=== PATIENT | female | born 1940 | race Caucasian/White ===

== ENCOUNTER 2018-07-13 17:28 | Inpatient (IN) | payer MEDICARE, MEDICAID ==
[~2018-07-13] VITALS: Ht 152.4 cm; Wt 64.0 kg
[~2018-07-13 17:28] MED LIST: ASPI-605 PO; CAPT25TA3 PO; FOLI1TAB16 PO; LEVO75TA7 PO
--- NOTE | 2018-07-13 18:03 | NUR ---
feeling dizzy since waking up this morning. denies nausea, vomiting. PER FAMILY, SHE FELL AND HIT HER HEAD. DENIES PAIN. NO NEURO DEFICITS. PT IS AOX3, AMB, VSS, RR EVEN AND UNLABORED ON RA. POLISH-SPEAKING. SKIN INTACT, NO ACUTE DISTRESS NOTED. HOOKED TO MONITOR AND MADE COMFORTABLE. FAMILY AT BEDSIDE. READY FOR EVAL.
[2018-07-13 18:58] LABS: BASOPHILS # (AUTO) 0.1 /CMM (0.0-0.2); BASOPHILS % (AUTO) 1.9 % (0.0-2.0); EOSINOPHILS % (AUTO) 5.2 % (0.0-6.0); HEMATOCRIT 38 % (33-45); HEMOGLOBIN 12.5 g/dL (11.5-14.8); LYMPHOCYTES # (AUTO) 1.8 /CMM (0.8-4.8); LYMPHOCYTES % (AUTO) 26.4 % (20.0-44.0); MEAN CORPUSCULAR HGB CONC 33 g/dl (31.0-36.0); MEAN CORPUSCULAR VOLUME 92 fL (82-100); MONOCYTES # (AUTO) 0.6 /CMM (0.1-1.30); NEUTROPHILS % (AUTO) 57.5 % (43.0-81.0); PLATELET COUNT (AUTO) 218 /CMM (150-450); RED BLOOD CELL COUNT(AUTO) 4.09 MIL/uL (4.0-5.2)
[2018-07-13] MEDS ORDERED: IV NS 0.9% 1,000 ML BAG IV ONE (19:00)
[2018-07-13 19:07] LABS: CALCIUM, SERUM 8.4 mg/dL (8.5-10.1); CARBON DIOXIDE 31 mmol/L (21-32); CHLORIDE 107 mmol/L (98-107); CREATININE 0.8 mg/dL (0.6-1.3); GLUCOSE 99 mg/dL (74-106); POTASSIUM 3.5 mmol/L (3.5-5.1); SODIUM SERUM 143 mmol/L (136-145); UREA NITROGEN, BLOOD 17 mg/dL (7-18)
[2018-07-13 19:13] LABS: ALANINE AMINOTRANSFERASE 35 U/L (12-78); ALBUMIN 3.4 g/dL (3.4-5.0); ALKALINE PHOSPHATASE 171 U/L (46-116); ASPARTATE AMINOTRANSFERASE 48 U/L (15-37); BILIRUBIN,DIRECT 0.1 mg/dL (0.0-0.2); BILIRUBIN,TOTAL 0.4 mg/dL (0.2-1.0); TOTAL PROTEIN, SERUM 8.6 g/dL (6.4-8.2)
[2018-07-13] MEDS ORDERED: LEVO50TA8 PO (19:14)
[2018-07-13] MEDS ORDERED: METH2.5T14 PO (19:14)
[2018-07-13 19:40] LABS: THYROID STIMULATING HORMONE 3.785 uIU/mL (0.358-3.74)
--- NOTE | 2018-07-13 19:47 | NUR ---
RPatient is resting comfortably in bed. Easily aroused. VSS
--- NOTE | 2018-07-13 20:01 | NUR ---
TELE 326-2
--- NOTE | 2018-07-13 21:01 | NUR ---
REPORT GIVEN TO JORDEN BARRETT FOR 326-2 TELE
[2018-07-13] MEDS ORDERED: IV NS 0.9% 1,000 ML IV PRN (21:14)
[2018-07-13 21:30] VITALS: BP 136/57
[2018-07-13] MEDS ORDERED: MAGNESIUM HYDROXIDE 30 ML UDC PO PRN (21:30)
[2018-07-13] MEDS ORDERED: MAG HYDROX/AL HYDROX/SIMETH 30 ML UDC PO PRN (21:30)
[2018-07-13] MEDS ORDERED: ONDANSETRON HCL/PF 4 MG/2 ML VIAL IVP PRN (21:30)
[2018-07-13] MEDS ORDERED: HYDROCODONE/APAP 10/325MG 1 EA TABLET PO PRN (21:30)
[2018-07-13] MEDS ORDERED: HYDROCODONE/APAP 5/325MG 1 EACH TABLET PO PRN (21:30)
[2018-07-13] MEDS ORDERED: ACETAMINOPHEN 325 MG TABLET PO PRN (21:30)
[2018-07-13] MEDS ORDERED: TEMAZEPAM 7.5 MG CAPSULE PO PRN (21:30)
--- NOTE | 2018-07-13 21:35 | NUR ---
[facility]
[2018-07-13 22:13] VITALS: BP 136/57
--- NOTE | 2018-07-13 22:27 | NUR ---
TELE METALSMITH INITIAL NOTES ADMIT PATIENT FROM ER VIA [facility] ACCOMPANIED BY ER NURSE. DX OF SYNCOPE. PT ALERT ORIENTED X4 AMBULATORY , PLEASANT , ONLY [place] SPEAKING. DAUGHTER AT THE BEDSIDE TO HELPED TO TRANSLATED AND ABLE TO PROVIDE INFORMATION BECAUSE PATIENT LIVE WITH HER. DAUGHTER TOLD ME THAT PATIENT USUALLY SLEPT LIKE 2 HRS EVERY NIGHT BUT SLEPT IN THE MIDDLE OF THE DAY THAT'S WHY SHE FEEL DIZZY. PATIENT STATES THAT SHE BECAME LIGHTHEADED WHILE WALKING THAT THIS CAUSED HER TO FALL.DENIES ANY PAIN OR ANY DISCOMFORT.SHE DENIES ANY BACK PAIN , NECK PAIN, N/V . ORIENTED WHERE SHE AT AND HOW TO USED THE CALL LIGHT SYSTEM. BED ALARM SET FOR SAFETY. TELE APPLIED TO HER CHEST WALL AND EDUCATE HER WHAT THE PURPOSE OF IT AND PT UNDERSTOOD WELL. KEPT HER WARM AND COMFORTABLE AT ALL TIMES. PLACE CALL LIGHT AT REACH.
[2018-07-14] VITALS: BP 132/59
--- NOTE | 2018-07-14 03:00 | NUR ---
TELE THEOLOGY TEACHER NOTES PT ASLEEP AT THIS TIME. TELE SINUS RHYTHM PER MONITOR.
[2018-07-14 04:00] VITALS: BP 149/59
[2018-07-14 06:19] LABS: BASOPHILS # (AUTO) 0.1 /CMM (0.0-0.2); BASOPHILS % (AUTO) 1.4 % (0.0-2.0); EOSINOPHILS % (AUTO) 8.5 % (0.0-6.0); HEMATOCRIT 37 % (33-45); LYMPHOCYTES # (AUTO) 1.7 /CMM (0.8-4.8); LYMPHOCYTES % (AUTO) 28.4 % (20.0-44.0); MEAN CORPUSCULAR HGB CONC 33 g/dl (31.0-36.0); MEAN CORPUSCULAR VOLUME 91 fL (82-100); MONOCYTES # (AUTO) 0.6 /CMM (0.1-1.30); NEUTROPHILS # (AUTO) 3.2 /CMM (1.8-8.9); NEUTROPHILS % (AUTO) 52.7 % (43.0-81.0); PLATELET COUNT (AUTO) 181 /CMM (150-450); RED BLOOD CELL COUNT(AUTO) 4.01 MIL/uL (4.0-5.2); WHITE BLOOD COUNT (AUTO) 6.1 K/uL (4.3-11.0)
[2018-07-14 06:44] LABS: CALCIUM, SERUM 7.8 mg/dL (8.5-10.1); CARBON DIOXIDE 22 mmol/L (21-32); CHLORIDE 111 mmol/L (98-107); CREATININE 0.5 mg/dL (0.6-1.3); GLUCOSE 89 mg/dL (74-106); MAGNESIUM 2.1 mg/dL (1.8-2.4); PHOSPHORUS 2.9 mg/dL (2.5-4.9); POTASSIUM 3.7 mmol/L (3.5-5.1); SODIUM SERUM 145 mmol/L (136-145); UREA NITROGEN, BLOOD 12 mg/dL (7-18)
[2018-07-14] MEDS: PANTOPRAZOLE 40 MG TABLET.DR PO SCH (06:52)
[2018-07-14] MEDS: LEVOTHYROXINE SODIUM 75 MCG TABLET PO SCH (06:52)
[2018-07-14 07:13] LABS: CHOLESTEROL 145 mg/dL (<200); HDL CHOLESTEROL 57 mg/dL (40-60); LDL 78 mg/dL (0-99); TRIGLYCERIDES 62 mg/dL (30-150)
--- NOTE | 2018-07-14 07:24 | NUR ---
HYGIENE ASSISTANT OPENING NOTES RECEIVED PT AWAKE IN BED IN NO ACUTE SIGNS OF DISTRESS. A/O X4. CITIZEN OF [place] SPEAKING, DENIES PAIN OR ANY DISCOMFORTS AT THIS TIME. ON ROOM AIR, BREATHING EVEN AND UNLABORED. ON TELE-MONITORING WITH CURRENT READING OF SR WITH HR ON THE 70'S, NO C/O CARDIAC DISTRESS VOICED. IV ACCESS ON LAC INTACT AND PATENT, WILL START IVF ORDERED. SAFETY MEASURES IN PLACE. BED IN LOW LOCKED POSITION WITH SIDE-RAILS UP X2. BED ALARM ON. CALL LIGHT IN REACH AND REMINDED PT TO USE IT FOR ANY STAFF ASSISTANCE. WILL CONTINUE TO MONITOR.
--- NOTE | 2018-07-14 07:45 | NUR ---
TELE BOND ANALYST CLOSING NOTES PT BACK TO REST AFTER ROUTINE MEDS GIVEN. STABLE AND SLEPT WELL . DENIES ANY PAIN OR ANY DISCOMFORT. TELE SINUS RHYTHM PER MONITOR. VITAL SIGNS WITHIN NORMAL LIMIT. BED ALARM SET FOR SAFETY. CALL LIGHT AT REACH. ENDORSE TO AM NURSE CONNER FOR CONTINUITY OF CARE.
[2018-07-14 08:00] VITALS: BP 151/66
[2018-07-14 08:26] LABS: IRON, SERUM 46 ug/dl (50-175); TOTAL IRON BINDING CAPACITY 270 ug/dl (250-450)
[2018-07-14] MEDS: FOLIC ACID 1 MG TABLET PO SCH (08:36)
[2018-07-14] MEDS: ASPIRIN EC 81 MG TABLET.DR PO SCH (08:36)
[2018-07-14] MEDS: VALSARTAN 80 MG TABLET PO SCH (08:37)
[2018-07-14 08:41] LABS: FERRITIN 77 ng/mL (8-388)
[2018-07-14] MEDS ORDERED: CAPTOPRIL 25 MG TABLET PO SCH (09:00)
--- NOTE | 2018-07-14 09:40 | NUR ---
RN NOTES PT SEEN AND EVALUATED BY DR PETER (NEUROLOGIST) WITH ORDER TO DO CTA OF BRAIN. WENT TO PATIENT TOGAETHER WITH SWEDISH SPEAKING STAFF " ALEX". PROCEDURE WAS EXPLAINED AND TRANSLATED BY ALEX, PT VERBALIZED UNDERSTANDING AND SIGNED CONSENT. WILL CONTINUE TO MONITOR.
[2018-07-14] MEDS ORDERED: CT SWABBABLE VALVE TRANS SET 1 EA INFUS.SET MC ONE (10:38)
[2018-07-14] MEDS ORDERED: IOHEXOL-350 100 ML VIAL IV ONE (10:38)
--- NOTE | 2018-07-14 10:44 | NUR ---
RN NOTES PATIENT TRANSPORTED VIA WHEELCHAIR TO CT ROOM FOR CTA OF BRAIN.
--- NOTE | 2018-07-14 11:17 | NUR ---
RN NOTES PT CAME BACK FROM CTA OF BRAIN AND C/O HEADACHE AND ASKED FOR TYLENOL. PRN TYLENOL 650MG PO GIVEN AT 1115. WILL CONTINUE TO MONITOR
--- NOTE | 2018-07-14 12:24 | NUR ---
RN NOTES LEFT MESSAGE TO DR EVANS TO VERIFY AND DO MED RICON FOR PATIENT
--- NOTE | 2018-07-14 15:24 | NUR ---
RN NOTES PATIENT'S SON AT BEDSIDE AT THIS TIME AND ASKED THE FREQUENCY AND DOSAGE OF PT'S METHOTREXATE AND AFTER TALKING TO HIS MOM , HE SAID THAT HER MOM METHOTREXATE 2.5 MG PO ONCE A DAY FROM SUNDAY TO SUNDAY EXCEPT SUNDAY. CALLED PHARMACY AND INFORMED. WILL CONTINUE TO MONITOR.
[2018-07-14 16:00] VITALS: BP 105/62
[2018-07-14] MEDS: METHOTREXATE SODIUM (2.5MG) 2.5 MG TABLET PO SCH (16:08)
--- NOTE | 2018-07-14 18:43 | NUR ---
MS RN CLOSING NOTES PT IN BED AWAKE AND RESTING COMFORTABLY @ MODERATE HIGH BACKREST POSITION. A/O X4. ARABIC SPEAKING. COOPERATIVE AND REMINDED CALL STAFF FOR ASSISTANCE ESPECIALLY OOB TO BSC. ON ROOM AIR, TOLERATING WELL WITH NO SOB NOTED. IV ACCESS ON LAC INTACT AND PATENT, IVF OF NS @ 75ML/HR INFUSING WELL, NO S/S OF INFILTRATIONS NOTED. ALL NEEDS AND CARE ATTENDED WELL. SAFETY MEASURES IN PLACE. BED IN LOW LOCKED POSITION WITH SIDE-RAILS UP X2. BED ALARM ON. CALL LIGHT IN REACH. . RESULTS OF CTA OF BRAIN STILL PENDING AT THIS TIME. WILL ENDORSE TO SUPERCALENDER OPERATOR HELPER NURSE FOR MARY.
--- NOTE | 2018-07-14 19:25 | NUR ---
RN NOTES RECEIVED PATIENT AWAKE IN BED. A/OX4, PORTUGUESE SPEAKING. NO SIGNS OF DISTRESS OR DISCOMFORT. BREATHING EVEN AND UNLABORED. IV ACCESS IN LAC WITH NS INFUSING, PATENT AND INTACT, NO SIGNS OF REDNESS OR INFILTRATION. BED IN LOW LOCKED POSITION WITH SIDE RAILS X2. BED ALARM ON. CALL LIGHT WITHIN REACH. WILL CONTINUE TO MONITOR.
[2018-07-14 20:00] VITALS: BP 128/64
[2018-07-14 20:26] VITALS: BP 128/64
--- NOTE | 2018-07-15 06:29 | NUR ---
RN CLOSING NOTES PATIENT RESTING COMFORTABLY IN BED. A/OX4, [place] SPEAKING. NO SIGNS OF DISTRESS OR DISCOMFORT. BREATHING EVEN AND UNLABORED. IV ACCESS IN LAC, PATENT AND INTACT, NO SIGNS OF REDNESS OR INFILTRATION. ALL NEEDS MET. NO SIGNIFICANT CHANGES THROUGH THE NIGHT. BED IN LOW LOCKED POSITION WITH SIDE RAILS X2. BED ALARM ON. CALL LIGHT WITHIN REACH. WILL ENDORSE TO AM SHIFT FOR MARY.
[2018-07-15 07:11] LABS: BASOPHILS # (AUTO) 0.1 /CMM (0.0-0.2); BASOPHILS % (AUTO) 1.6 % (0.0-2.0); EOSINOPHILS % (AUTO) 11.1 % (0.0-6.0); HEMATOCRIT 35 % (33-45); HEMOGLOBIN 11.9 g/dL (11.5-14.8); LYMPHOCYTES # (AUTO) 1.7 /CMM (0.8-4.8); LYMPHOCYTES % (AUTO) 30.9 % (20.0-44.0); MEAN CORPUSCULAR HGB CONC 34 g/dl (31.0-36.0); MEAN CORPUSCULAR VOLUME 90 fL (82-100); MONOCYTES # (AUTO) 0.5 /CMM (0.1-1.30); NEUTROPHILS # (AUTO) 2.7 /CMM (1.8-8.9); NEUTROPHILS % (AUTO) 47.4 % (43.0-81.0); PLATELET COUNT (AUTO) 181 /CMM (150-450); RED BLOOD CELL COUNT(AUTO) 3.94 MIL/uL (4.0-5.2); WHITE BLOOD COUNT (AUTO) 5.6 K/uL (4.3-11.0)
[2018-07-15 07:13] LABS: ALANINE AMINOTRANSFERASE 29 U/L (12-78); ALKALINE PHOSPHATASE 144 U/L (46-116); ASPARTATE AMINOTRANSFERASE 39 U/L (15-37); BILIRUBIN,TOTAL 0.5 mg/dL (0.2-1.0); CALCIUM, SERUM 8.1 mg/dL (8.5-10.1); CARBON DIOXIDE 25 mmol/L (21-32); CHLORIDE 110 mmol/L (98-107); CREATININE 0.7 mg/dL (0.6-1.3); GLUCOSE 90 mg/dL (74-106); MAGNESIUM 2.2 mg/dL (1.8-2.4); PHOSPHORUS 2.9 mg/dL (2.5-4.9); POTASSIUM 3.8 mmol/L (3.5-5.1); SODIUM SERUM 142 mmol/L (136-145); TOTAL PROTEIN, SERUM 7.5 g/dL (6.4-8.2); UREA NITROGEN, BLOOD 18 mg/dL (7-18)
[2018-07-15 08:00] VITALS: BP 100/50
--- NOTE | 2018-07-15 08:00 | NUR ---
MS RN OPENING NOTES Received Patient comfortable and sitting up in bed. A/O x 4, English speaking. VS stable with no acute distress. Breathing even and unlabored on room air with no respiratory distress. Denies pain at this time. 20g PIV on LAC clean, dry, intact and flushing well. IVF NS running at 75ml/hr. Safety precautions in place. Bed locked and set in lowest position with side rails x 2 up. All needs rendered at this time. Will continue to monitor.
[2018-07-15] MEDS: LEVOTHYROXINE SODIUM 75 MCG TABLET PO SCH (08:54)
[2018-07-15] MEDS: PANTOPRAZOLE 40 MG TABLET.DR PO SCH (08:54)
[2018-07-15] MEDS: VALSARTAN 80 MG TABLET PO SCH (08:56)
[2018-07-15] MEDS: ASPIRIN EC 81 MG TABLET.DR PO SCH (08:56)
[2018-07-15] MEDS: FOLIC ACID 1 MG TABLET PO SCH (08:57)
[2018-07-15] MEDS: METHOTREXATE SODIUM (2.5MG) 2.5 MG TABLET PO SCH (08:58)
[2018-07-15 16:00] VITALS: BP 132/74
[2018-07-15] MEDS ORDERED: LEVO75TA PO (17:00)
[2018-07-15] MEDS ORDERED: VALS80TA2 PO (17:00)
--- NOTE | 2018-07-15 18:50 | NUR ---
MS RN CLOSING NOTES Patient comfortable and sitting up in bed. A/O x 4, Divehi speaking. VS stable with no acute distress. Breathing even and unlabored on room air with no respiratory distress. Denies pain at this time. Patient accidentally pulled out PIV. Not replaced due to Patient being discharged later. Safety precautions in place. Bed locked and set in lowest position with side rails x 2 up. All needs rendered at this time. Will endorse plan of care to oncoming shift.
--- NOTE | 2018-07-15 19:20 | NUR ---
RN OPEN NOTES RECEIVED PATIENT SITTING IN CHAIR IN HALLWAY TALKING WITH RELOCATION DIRECTOR. A/OX3. [place] SPEAKING. NO SIGNS OF DISTRESS OR DISCOMFORT. BREATHING EVEN AND UNLABORED. PATIENT AWAITING DISCHARGE HOME WITH FAMILY. IV ACCESS HAS BEEN REMOVED. BED IN LOW LOCKED POSITION WITH SIDE RAILS X2. WILL CONTINUE TO MONITOR.
--- NOTE | 2018-07-15 20:14 | NUR ---
RN CLOSING NOTES PATIENT DISCHARGED HOME WITH FAMILY IN STABLE CONDITION. PICKED UP BY SON BRITTANI KAUR [phone]. PATIENT ASSISTED TO LOBBY BY JOE GASPAR. ADVISED PATIENT AND FAMILY TO FOLLOW UP WITH PCP WITHIN 1 WEEK. FAMILY VERBALIZE UNDERSTANDING OF DISCHARGE EDUCATION AND INSTRUCTIONS. NOTIFIED MD TO F/U WITH PHARMACY REGARDING NEW RX. NO SKIN ISSUES NOTED. ALL BELONGINGS WITH PATIENT.
--- NOTE | 2018-07-15 21:02 | NUR ---
RN NOTES NOTIFIED BRYOLOGIST AND DISCHARGING MD THAT NEW PRESCRIPTION WAS NOT IN PATIENTS CHART UPON DISCHARGE AND PHARMACY HAS NOT RECEIVED SCRIPT ELECTRONICALLY. WILL F/U WITH MD IN THE AM.
--- NOTE | 2018-07-15 21:20 | NUR ---
RN NOTES NOTIFIED JESSICA SILVA THAT SCRIPT IS NOW AVAILABLE FOR PICKUP AT [facility]. COPY OF RX IN CHART.
== END 2018-07-15 20:11 | disposition home or self-care (01) | DRG 74 ==
LOC: ER 17:28 → TELE 20:54 → MED 07-14 09:44
PROVIDERS: ADMIT Nurse Practitioner Acute Care
DX: G90.8 Other disorders of autonomic nervous system (principal); G93.40 Encephalopathy, unspecified; N17.9 Acute kidney failure, unspecified; M06.9 Rheumatoid arthritis, unspecified; G30.9 Alzheimer's disease, unspecified; F02.80 Dementia in other diseases classified elsewhere, unspecified severity, without behavioral disturbance, psychotic disturbance, mood disturbance, and anxiety; E11.9 Type 2 diabetes mellitus without complications; E03.9 Hypothyroidism, unspecified; I10 Essential (primary) hypertension; M81.0 Age-related osteoporosis without current pathological fracture; Z86.73 Personal history of transient ischemic attack (TIA), and cerebral infarction without residual deficits; Z79.82 Long term (current) use of aspirin; Z79.899 Other long term (current) drug therapy; W18.30XA Fall on same level, unspecified, initial encounter; Y92.009 Unspecified place in unspecified non-institutional (private) residence as the place of occurrence of the external cause; Z79.890 Hormone replacement therapy
CPT/HCPCS: 36415; 70450-TC; 70496-TC; 71045-TC; 80048-TC; 80053-TC; 80061-TC; 80076-TC; 82728-TC; 83540-TC; 83605-TC; 83735-TC; 83880; 84100-TC; 84439-TC; 84443-TC; 84484-TC; 85025-TC; 85730-TC; 87040-TC; 87081-TC; 93307-TC; 97110-TC; 97116-TC; 97530-TC; G0378; J7030; J8610; Q9967

== ENCOUNTER 2023-05-23 09:22 | Inpatient (IN) | payer MEDICARE, OTHER ==
[~2023-05-23] VITALS: Ht 152.4 cm; Wt 63.0 kg
[~2023-05-23 09:22] MED LIST changes: -ASPI-605 PO; +CYAN500T64 PO; +LEVO75TA PO; -LEVO75TA7 PO; +METH2.5T14 PO; +QUET25TA PO
[2023-05-23 10:05] LABS: BASOPHILS # (AUTO) 0.1 K/uL (0.0-0.2); BASOPHILS % (AUTO) 1.9 % (0.0-2.0); EOSINOPHILS # (AUTO) 0.4 K/uL (0.0-0.7); EOSINOPHILS % (AUTO) 6.6 % (0.0-6.0); HEMATOCRIT 36 % (33-45); LYMPHOCYTES # (AUTO) 1.8 K/uL (0.8-4.8); MEAN CORPUSCULAR HEMOGLOBIN 30 PG (26.0-33.0); MEAN CORPUSCULAR HGB CONC 33 g/dl (31.0-36.0); MEAN CORPUSCULAR VOLUME 91 fL (82-100); MONOCYTES # (AUTO) 0.5 K/uL (0.1-1.30); MONOCYTES % (AUTO) 8.8 % (2.0-12.0); NEUTROPHILS # (AUTO) 3.3 K/uL (1.8-8.9); NEUTROPHILS % (AUTO) 53.7 % (43.0-81.0); PLATELET COUNT (AUTO) 179 K/uL (150-450); RED BLOOD CELL COUNT(AUTO) 3.99 MIL/uL (4.0-5.2); RED CELL DISTRIBUTION WIDTH 13.6 % (11.5-15.0); WHITE BLOOD COUNT (AUTO) 6.1 K/uL (4.3-11.0)
[2023-05-23 10:17] LABS: APPEARANCE,URINE CLEAR (CLEAR); BILIRUBIN,URINE NEGATIVE (NEGATIVE); BLOOD, URINE 1+ Ery/uL (NEGATIVE); COLOR,URINE YELLOW (YELLOW); KETONES,URINE NEGATIVE (NEGATIVE); LEUKOCYTE ESTERASE ,URINE NEGATIVE (NEGATIVE); NITRITE, URINE NEGATIVE (NEGATIVE); PH,URINE 7.5 (5.0-8.0); PROTEIN,URINE NEGATIVE (NEGATIVE); UGLUCOSE NEGATIVE (NEGATIVE); UROBILINOGEN,URINE 0.2 EU/dL (0.2)
[2023-05-23 10:22] LABS: ADD URINE CULTURE NO; BACTERIA,URINE Rare /HPF (None Seen); SQUAMOUS EPITHELIAL CELL,UR Few /HPF (None Seen); WBC,URINE 0-2 /HPF (0-3)
[2023-05-23 10:30] LABS: ALANINE AMINOTRANSFERASE 23 U/L (12-78); ALKALINE PHOSPHATASE 98 U/L (46-116); ASPARTATE AMINOTRANSFERASE 35 U/L (15-37); BILIRUBIN,DIRECT 0.1 mg/dL (0.0-0.2); BILIRUBIN,TOTAL 0.4 mg/dL (0.2-1.0); CALCIUM, SERUM 8.9 mg/dL (8.5-10.1); CARBON DIOXIDE 28 mmol/L (21-32); CHLORIDE 106 mmol/L (98-107); CREATININE 0.8 mg/dL (0.6-1.3); GLUCOSE 86 mg/dL (74-106); POTASSIUM 4.2 mmol/L (3.5-5.1); SODIUM SERUM 142 mmol/L (136-145); UREA NITROGEN, BLOOD 13 mg/dL (7-18)
[2023-05-23] MEDS ORDERED: ONDANSETRON HCL/PF 4 MG/2 ML VIAL IVP PRN (10:30)
[2023-05-23] MEDS ORDERED: METHOTREXATE SODIUM (2.5MG) 2.5 MG TABLET PO SCH (10:30)
[2023-05-23] MEDS ORDERED: MORPHINE SULFATE INJ 2 MG/ML DISP.SYRIN IV PRN (10:30)
[2023-05-23] MEDS ORDERED: LEVO88TA5 PO (11:00)
[2023-05-23] MEDS ORDERED: VALS80TA2 PO (11:00)
[2023-05-23] MEDS ORDERED: QUET50TA PO (11:00)
[2023-05-23 11:02] LABS: LACTIC ACID 2.3 mmol/L (0.4-2.0)
[2023-05-23 11:12] LABS: THYROID STIMULATING HORMONE 5.583 uIU/mL (0.358-3.74)
[2023-05-23 12:30] VITALS: BP 157/60; TEMP 97.5; O2SAT 98
[2023-05-23] MEDS: SERTRALINE HCL 50 MG TABLET PO SCH (13:02)
[2023-05-23 13:38] VITALS: BP 125/63; TEMP 98.2; O2SAT 100
[2023-05-23 16:24] VITALS: BP 98/64; TEMP 99.1; O2SAT 96
[2023-05-23] MEDS: QUETIAPINE FUMARATE 25 MG TABLET PO SCH (17:16)
[2023-05-23] MEDS: DOCUSATE SODIUM LIQ 100 MG/10 ML UDC PO SCH (17:16)
[2023-05-23] MEDS: HEPARIN SODIUM, PORCINE 5000 UNITS/1 ML VIAL SQ SCH (21:46)
[2023-05-23 22:26] VITALS: BP 110/70; TEMP 98.5; O2SAT 98
[2023-05-24 07:29] LABS: BASOPHILS # (AUTO) 0.1 K/uL (0.0-0.2); BASOPHILS % (AUTO) 1.1 % (0.0-2.0); EOSINOPHILS # (AUTO) 0.4 K/uL (0.0-0.7); EOSINOPHILS % (AUTO) 4.8 % (0.0-6.0); HEMATOCRIT 36 % (33-45); HEMOGLOBIN 11.8 g/dL (11.5-14.8); LYMPHOCYTES # (AUTO) 1.6 K/uL (0.8-4.8); LYMPHOCYTES % (AUTO) 21.2 % (20.0-44.0); MEAN CORPUSCULAR HEMOGLOBIN 30 PG (26.0-33.0); MEAN CORPUSCULAR HGB CONC 33 g/dl (31.0-36.0); MEAN CORPUSCULAR VOLUME 91 fL (82-100); MONOCYTES # (AUTO) 0.6 K/uL (0.1-1.30); MONOCYTES % (AUTO) 7.7 % (2.0-12.0); NEUTROPHILS # (AUTO) 4.9 K/uL (1.8-8.9); NEUTROPHILS % (AUTO) 65.2 % (43.0-81.0); PLATELET COUNT (AUTO) 192 K/uL (150-450); RED BLOOD CELL COUNT(AUTO) 3.98 MIL/uL (4.0-5.2); RED CELL DISTRIBUTION WIDTH 13.1 % (11.5-15.0); WHITE BLOOD COUNT (AUTO) 7.5 K/uL (4.3-11.0)
[2023-05-24] MEDS ORDERED: LEVOTHYROXINE SODIUM 88 MCG TABLET PO SCH (07:30)
[2023-05-24 08:00] VITALS: BP 133/67; TEMP 98.5; O2SAT 96
[2023-05-24 08:45] LABS: ALANINE AMINOTRANSFERASE 24 U/L (12-78); ALBUMIN 3.1 g/dL (3.4-5.0); ALKALINE PHOSPHATASE 92 U/L (46-116); ASPARTATE AMINOTRANSFERASE 35 U/L (15-37); BILIRUBIN,TOTAL 0.5 mg/dL (0.2-1.0); CARBON DIOXIDE 23 mmol/L (21-32); CHLORIDE 105 mmol/L (98-107); CREATININE 0.8 mg/dL (0.6-1.3); GLUCOSE 131 mg/dL (74-106); MAGNESIUM 1.9 mg/dL (1.8-2.4); PHOSPHORUS 3.2 mg/dL (2.5-4.9); POTASSIUM 3.6 mmol/L (3.5-5.1); SODIUM SERUM 140 mmol/L (136-145); TOTAL PROTEIN, SERUM 7.4 g/dL (6.4-8.2); UREA NITROGEN, BLOOD 14 mg/dL (7-18)
[2023-05-24] MEDS ORDERED: VALSARTAN 80 MG TABLET PO SCH (09:00)
[2023-05-24] MEDS ORDERED: CAPTOPRIL 25 MG TABLET PO SCH (09:00)
[2023-05-24] MEDS: POLYETHYLENE GLYCOL 3350 17 GM POWD.PACK PO SCH (09:06)
[2023-05-24] MEDS: FOLIC ACID 1 MG TABLET PO SCH (09:07)
[2023-05-24] MEDS: LEVOTHYROXINE SODIUM 88 MCG TABLET PO SCH (09:07)
[2023-05-24] MEDS: VALSARTAN 80 MG TABLET PO SCH (09:08)
[2023-05-24 18:02] VITALS: BP 124/62; TEMP 98.1; O2SAT 96
[2023-05-25] MEDS ORDERED: DOCU50LI PO (12:25)
[2023-05-25] MEDS ORDERED: Quetiapine Fumarate PO (12:25)
[2023-05-26] MEDS: ACETAMINOPHEN 325 MG TABLET PO PRN (01:07)
[2023-05-27 09:05] VITALS: BP 116/60
== END 2023-05-27 11:40 | DRG 641 ==
LOC: ER 09:29 → TELE 11:26 → MED 12:26
PROVIDERS: ADMIT Internal Medicine; ATTEND Internal Medicine
DX: R62.7 Adult failure to thrive (principal); G93.49 Other encephalopathy; E78.5 Hyperlipidemia, unspecified; E03.9 Hypothyroidism, unspecified; I10 Essential (primary) hypertension; M81.0 Age-related osteoporosis without current pathological fracture; Z68.27 Body mass index [BMI] 27.0-27.9, adult; F03.90 Unspecified dementia, unspecified severity, without behavioral disturbance, psychotic disturbance, mood disturbance, and anxiety; M06.9 Rheumatoid arthritis, unspecified
CPT/HCPCS: 36415; 70450-TC; 71045-TC; 80048-TC; 80053-TC; 80076-TC; 81001; 82962-TC; 83605-TC; 83735-TC; 83880; 84100-TC; 84439-TC; 84443-TC; 84484-TC; 85025-TC; 86850-TC; G0378; J1644

== ENCOUNTER 2023-12-04 11:05 | Emergency (ER) | payer MEDICARE, OTHER ==
[~2023-12-04] VITALS: Ht 142.2 cm; Wt 60.3 kg
[~2023-12-04 11:05] MED LIST changes: -CAPT25TA3 PO; -CYAN500T64 PO; +DOCU50LI PO; -LEVO75TA PO; +LEVO88TA5 PO; -METH2.5T14 PO; -QUET25TA PO; +QUET50TA PO; +Quetiapine Fumarate PO; +VALS80TA2 PO
[2023-12-04] MEDS: IV NS 0.9% 500 ML BAG IV ONE (11:30)
[2023-12-04] MEDS ORDERED: IOHEXOL-300 100 ML VIAL IV ONE (11:55)
[2023-12-04] MEDS ORDERED: IV NS 0.9% 250 ML IV ONE (11:56)
[2023-12-04 12:11] LABS: BASOPHILS # (AUTO) 0.1 K/uL (0.0-0.2); BASOPHILS % (AUTO) 0.9 % (0.0-2.0); EOSINOPHILS # (AUTO) 0.6 K/uL (0.0-0.7); EOSINOPHILS % (AUTO) 7.4 % (0.0-6.0); HEMATOCRIT 35 % (33-45); HEMOGLOBIN 11.8 g/dL (11.5-14.8); LYMPHOCYTES # (AUTO) 1.5 K/uL (0.8-4.8); LYMPHOCYTES % (AUTO) 18.9 % (20.0-44.0); MEAN CORPUSCULAR HEMOGLOBIN 30 PG (26.0-33.0); MEAN CORPUSCULAR HGB CONC 33 g/dl (31.0-36.0); MEAN CORPUSCULAR VOLUME 91 fL (82-100); MONOCYTES # (AUTO) 0.6 K/uL (0.1-1.30); MONOCYTES % (AUTO) 7.5 % (2.0-12.0); NEUTROPHILS # (AUTO) 5.1 K/uL (1.8-8.9); NEUTROPHILS % (AUTO) 65.3 % (43.0-81.0); PLATELET COUNT (AUTO) 209 K/uL (150-450); RED BLOOD CELL COUNT(AUTO) 3.88 MIL/uL (4.0-5.2); RED CELL DISTRIBUTION WIDTH 14.6 % (11.5-15.0); WHITE BLOOD COUNT (AUTO) 7.8 K/uL (4.3-11.0)
[2023-12-04 12:16] LABS: CALCIUM, SERUM 8.9 mg/dL (8.5-10.1); CARBON DIOXIDE 26 mmol/L (21-32); CHLORIDE 108 mmol/L (98-107); CREATININE 0.9 mg/dL (0.6-1.3); GLUCOSE 107 mg/dL (74-106); INR 1.03 (0.91-1.10); PARTIAL THROMBOPLASTIN TIME 25.2 SEC (24.3-34.3); POTASSIUM 4.1 mmol/L (3.5-5.1); PROTHROMBIN TIME 10.9 SECS (9.2-11.1); SODIUM SERUM 143 mmol/L (136-145); UREA NITROGEN, BLOOD 26 mg/dL (7-18)
[2023-12-04 15:27] VITALS: TEMP 98
[2023-12-04 15:52] VITALS: BP 132/86; O2SAT 98
== END 2023-12-04 15:53 | disposition home or self-care (01) ==
LOC: ER 11:05
DX: S22.31XA Fracture of one rib, right side, initial encounter for closed fracture (principal); S80.02XA Contusion of left knee, initial encounter; S80.01XA Contusion of right knee, initial encounter; S60.221A Contusion of right hand, initial encounter; S20.211A Contusion of right front wall of thorax, initial encounter; S60.211A Contusion of right wrist, initial encounter; R07.81 Pleurodynia; I10 Essential (primary) hypertension; M81.0 Age-related osteoporosis without current pathological fracture; F03.90 Unspecified dementia, unspecified severity, without behavioral disturbance, psychotic disturbance, mood disturbance, and anxiety; Z79.899 Other long term (current) drug therapy; W01.0XXA Fall on same level from slipping, tripping and stumbling without subsequent striking against object, initial encounter; Y93.89 Activity, other specified; Y92.89 Other specified places as the place of occurrence of the external cause; Y99.8 Other external cause status
CPT/HCPCS: 99285; 71260; 73130; 73564 ×2; 70450; 73110; 74177; 85025; 80048; 36415; 85730; 86850; J7050; J7040; Q9967

== ENCOUNTER 2023-12-27 14:10 | Emergency (ER) | payer MEDICARE, OTHER ==
[~2023-12-27] VITALS: Ht 142.2 cm; Wt 61.2 kg
[2023-12-27] MEDS ORDERED: TDAP [DIPH/PERTUSSIS/TET] 0.5 ML VIAL IM ONE (15:13)
[2023-12-27] MEDS: TDAP [DIPH/PERTUSSIS/TET] 0.5 ML VIAL IM ONE (15:19)
[2023-12-27 16:05] VITALS: BP 141/69; TEMP 97.9; O2SAT 99
== END 2023-12-27 16:05 | disposition home or self-care (01) ==
LOC: ER 14:13
DX: S60.222A Contusion of left hand, initial encounter (principal); S00.03XA Contusion of scalp, initial encounter; I10 Essential (primary) hypertension; Z79.899 Other long term (current) drug therapy; Z79.890 Hormone replacement therapy; W01.0XXA Fall on same level from slipping, tripping and stumbling without subsequent striking against object, initial encounter; Y93.01 Activity, walking, marching and hiking; Y92.89 Other specified places as the place of occurrence of the external cause; Y99.8 Other external cause status
CPT/HCPCS: 70450-TC; 73130-TC; 90715

== ENCOUNTER 2025-02-20 10:55 | Emergency (ER) | payer MEDICARE, OTHER ==
[~2025-02-20] VITALS: Ht 142.2 cm; Wt 61.2 kg
[2025-02-20] MEDS ORDERED: ACETAMINOPHEN ES 500 MG TABLET ONE (12:02)
[2025-02-20] MEDS: ACETAMINOPHEN ES 500 MG TABLET PO ONE (12:06)
[2025-02-20 12:12] LABS: PLATELET COUNT (AUTO) 159 K/uL (150-450); RED BLOOD CELL COUNT(AUTO) 3.90 MIL/uL (4.0-5.2); RED CELL DISTRIBUTION WIDTH 13.6 % (11.5-15.0); WHITE BLOOD COUNT (AUTO) 4.3 K/uL (4.3-11.0)
[2025-02-20 12:13] LABS: CALCIUM, SERUM 8.0 mg/dL (8.5-10.1); CREATININE 0.8 mg/dL (0.6-1.3); SODIUM SERUM 145 mmol/L (136-145); UREA NITROGEN, BLOOD 12 mg/dL (7-18)
[2025-02-20 12:26] LABS: ASPARTATE AMINOTRANSFERASE 39 U/L (15-37); NT-PRO BNP 389 pg/mL (0-125); TOTAL PROTEIN, SERUM 7.1 g/dL (6.4-8.2)
[2025-02-20] MEDS ORDERED: ALBU18HF2 INH ×2 (12:51→14:26)
[2025-02-20] MEDS ORDERED: BENZ-13 PO ×2 (12:51→14:26)
[2025-02-20 15:37] VITALS: BP 106/52; TEMP 99; O2SAT 97
== END 2025-02-20 15:00 | disposition home or self-care (01) ==
LOC: ER 14:25
DX: R05.9 Cough, unspecified (principal); R51.9 Headache, unspecified; I11.9 Hypertensive heart disease without heart failure; R06.02 Shortness of breath; Z79.890 Hormone replacement therapy; Z79.899 Other long term (current) drug therapy; Z20.822 Contact with and (suspected) exposure to COVID-19
CPT/HCPCS: 36415; 70450-TC; 71045-TC; 80048-TC; 80076-TC; 83880; 84484-TC; 85025-TC